=== PATIENT | female | born 1970 | race Caucasian/White ===

== ENCOUNTER 2024-10-09 10:25 | Day surgery (SDC) | payer MEDICARE, MEDICAID ==
[~2024-10-09] VITALS: Ht 180.3 cm; Wt 109.0 kg
[2024-10-09] VITALS (8 sets, daily range): BP systolic 109–136; BP diastolic 63–77; PULSE 77–87; RESP 12–16; TEMP 98.2; O2SAT 94–99
[~2024-10-09 10:25] MED LIST: ASPI-1265 PO; ATOR20TA66 PO; LOSA1TAB36 PO
--- NOTE | 2024-10-09 10:57 | ELECTROCARDIOGRAPH REPORT ---
[facility] Test Date: 2024-10-09 Test Time: 10:56:01 Pat Name: DANIEL BERMUDEZ Department: [facility] Patient ID: [facility]-[id number] Room: Gender: F [employer]: : 1970 Requested By: DREA SMITH Order Number: [id number] Reading MD: Dr. LUZ MARINA Baires Measurements Intervals [place] Rate: 87 P: 35 MT: 162 QRS: -34 QRSD: 100 T: 6 QT: 372 QTc: 448 Interpretive Statements Sinus rhythm Abnormal R-wave progression, late transition Left ventricular hypertrophy Electronically Signed On 10-10-2024 16:52:[address] LUZ MARINA Baires Please click the below link to view image of tracing.
[2024-10-09] MEDS ORDERED: LIDOcaine 1% (10mg/ml) 2ml vial ONE (13:46)
[2024-10-09] MEDS ORDERED: verapamil 2.5 mg/ml inj IV ONE (13:46)
[2024-10-09] MEDS ORDERED: fentaNYL/PF 50MCG/1 ML 2ML syringe ONE (13:47)
[2024-10-09] MEDS ORDERED: midazolam 1 mg/ML 2ml injection ONE (13:47)
[2024-10-09] MEDS ORDERED: heparin 1,000unit/ml 10ml vial 10 ML ONE (13:47)
[2024-10-09] MEDS ORDERED: nitroGLYCERIN 500mcg/5mL D5W 5 ML IV ONE (13:48)
[2024-10-09] MEDS ORDERED: HYDROcodone/acetaminophen 5mg/325mg tablet PO PRN (15:30)
[2024-10-09] MEDS ORDERED: HYDROcodone/acetaminophen 10/325mg tab PO PRN (15:30)
--- NOTE | 2024-10-09 20:23 | CARDIAC CATH REPORT ---
Cardiac Cath Report Providers to CC CC: NILDA SMITH MD Procedure Comments: 1. Left Heart Catheterization 2. Selective Coronary Angiography 3. Right Radial Artery Access Brief History/Indications: 54yo woman with HTN, HLD, Obesity, worsening dyspnea on exertion and inferior/inferolateral defect on MPI referred for evaluation. Techniques: After informed consent was obtained, the patient was brought to the cardiac catheterization laboratory and prepped and draped in usual sterile fashion for left heart catheterization and other procedures mentioned above. The right wrist was anesthetized with 1% Lidocaine and the right radial artery accessed via the Seldinger technique after which a 6Fr sheath was placed. Through this a TIG was used to engage the left ventricle, the left coronary artery, and the right coronary artery. At the conclusion of the case the sheath was removed and hemostasis obtained with a VascBand. Findings Findings: HEMODYNAMICS: LV: 98/2 mmHg LVEDP: 9 mmHg Ao: 89/55, MAP 69 mmHg CORONARY ARTERIES: Rt Dominant LMCA: Luminal Irregularities LAD: Luminal Irregularities Dx: Luminal Irregularities LCx: Luminal Irregularities OM1: Luminal Irregularities RCA: Luminal Irregularities PDA: Luminal Irregularities PL: Luminal Irregularities Results Results: 1. No significant obstructive CAD 2. RRA Access, closed with VascBand RECOMMENDATIONS: 1. Recommend uptitration of max-tolerated GDMT DREA SMITH MD Oct 09, 2024 20:23
== END 2024-10-09 16:55 | disposition home or self-care (01) ==
LOC: SSTAY O 10:25
PROVIDERS: ATTEND Student in an Organized Health Care Education/Training Program
DX: R94.39 Abnormal result of other cardiovascular function study (principal); R94.31 Abnormal electrocardiogram [ECG] [EKG]; I11.9 Hypertensive heart disease without heart failure; E11.9 Type 2 diabetes mellitus without complications; E78.00 Pure hypercholesterolemia, unspecified; F41.9 Anxiety disorder, unspecified; F31.9 Bipolar disorder, unspecified; E66.9 Obesity, unspecified; Z79.82 Long term (current) use of aspirin; Z79.899 Other long term (current) drug therapy; Z68.25 Body mass index [BMI] 25.0-25.9, adult; Z82.49 Family history of ischemic heart disease and other diseases of the circulatory system
CPT/HCPCS: 82948; 93005; 93458; 99152; A6258; A6402; C1769; C1894; J1644; J2003; J2250; J3010; J3490; J7030; Q0163; Q9967; Z7610